=== PATIENT | male | born 1965 | race Caucasian/White ===

== ENCOUNTER → 2016-06-12 | Outpatient (CLI) | payer OTHER ==
[~2016-06-12] MED LIST: DIFLUCAN100 MG PO; DIFLUCAN150 MG PO; DITROPAN 5 MG TA5 MG PO; FLOMAX 0.4 MG0.4 MG PO; HABITROL 21 MG P1 EA TOP; HYDROCHLOROTHIA25 MG PO; NEURONTIN300 MG PO; NORVASC 5 MG TAB5 MG PO; NOVOLIN 70100 UNIT/1 SC; NOVOLOG 10100 UNITS1 SC; OXYBUTYNIN CHLOR5 MG PO; PRILOSEC OTC20 MG PO; PROTONIX40 MG PO; ROBAXIN 750 MG750 MG PO; TYLENOL 325MG325 MG PO
== END ==
LOC: KOH-I 14:30
DX: Z86.718 Personal history of other venous thrombosis and embolism (principal); Z88.0 Allergy status to penicillin; Z88.5 Allergy status to narcotic agent; Z88.8 Allergy status to other drugs, medicaments and biological substances
CPT/HCPCS: 93971

== ENCOUNTER 2016-08-05 18:27 | Emergency (ER) | payer MEDICARE, OTHER ==
[~2016-08-05 18:27] MED LIST changes: -HYDROCHLOROTHIA25 MG PO; -ROBAXIN 750 MG750 MG PO
[2016-08-05 21:30] LABS: HEMOGLOBIN 14.2 gm/dl (14.0-17.5); RED BLOOD COUNT 4.99 M/UL (4.20-5.50); WHITE BLOOD COUNT 14.5 K/UL (4.5-11.0)
[2016-08-05 21:46] LABS: BUN/CREATININE RATIO 22 (0-10)
== END 2016-08-06 00:32 | disposition home or self-care (01) ==
LOC: ER1 18:27
PROVIDERS: Family Medicine
DX: S09.90XA Unspecified injury of head, initial encounter (principal); S13.9XXA Sprain of joints and ligaments of unspecified parts of neck, initial encounter; S40.012A Contusion of left shoulder, initial encounter; I10 Essential (primary) hypertension; E11.9 Type 2 diabetes mellitus without complications; W10.9XXA Fall (on) (from) unspecified stairs and steps, initial encounter
CPT/HCPCS: 36415; 70450; 71010; 72125; 73030; 80053; 85025; 96374; 96375; 99284; G0480; J2270; J2405

== ENCOUNTER 2016-09-19 03:31 | Observation (INO) | payer MEDICARE, OTHER ==
[~2016-09-19] VITALS: Ht 180.3 cm; Wt 99.8 kg
[2016-09-19 05:16] LABS: HEMOGLOBIN 15.6 gm/dl (14.0-17.5); RED BLOOD COUNT 5.46 M/UL (4.20-5.50); WHITE BLOOD COUNT 22.8 K/UL (4.5-11.0)
[2016-09-19 05:45] LABS: BUN/CREATININE RATIO 23 (0-10)
[2016-09-19] MEDS ORDERED: HYDROCHLOROTHIA25 MG PO (10:55)
[2016-09-19] MEDS ORDERED: ROBAXIN 750 MG750 MG PO (10:56)
[2016-09-20 03:41] LABS: HEMOGLOBIN 15.1 gm/dl (14.0-17.5); RED BLOOD COUNT 5.3 M/UL (4.20-5.50)
[2016-09-20 04:30] LABS: BUN/CREATININE RATIO 25 (0-10)
== END 2016-09-20 14:03 | disposition home or self-care (01) ==
LOC: ER1 03:31 → ZEROF 07:35 → MED SURG 4 07:35
PROVIDERS: Emergency Medicine; ADMIT Family Medicine
DX: E10.649 Type 1 diabetes mellitus with hypoglycemia without coma (principal); R07.9 Chest pain, unspecified; D72.829 Elevated white blood cell count, unspecified; G89.29 Other chronic pain; I10 Essential (primary) hypertension; K21.9 Gastro-esophageal reflux disease without esophagitis; J44.9 Chronic obstructive pulmonary disease, unspecified; I25.10 Atherosclerotic heart disease of native coronary artery without angina pectoris; N40.0 Benign prostatic hyperplasia without lower urinary tract symptoms; F17.200 Nicotine dependence, unspecified, uncomplicated; Z88.5 Allergy status to narcotic agent; Z88.8 Allergy status to other drugs, medicaments and biological substances
CPT/HCPCS: 36415; 71010; 80053; 80061; 80307; 81001; 82550; 82553; 82962; 83605; 83874; 83880; 84484; 85025; 85027; 87086; 93005; 96372; 99285; G0378

== ENCOUNTER → 2021-05-12 | Outpatient (CLI) | payer MEDICARE, OTHER ==
[~2021-05-12] MED LIST changes: +ASPIRIN CHEWABL81 MG PO; +HYDROCHLOROTHIA25 MG PO; +IBUPROFEN600 MG PO; +KEFLEX CAP 500500 MG PO; +NORFLEX 100 MG100 MG PO; +REGLAN10 MG PO; +ROBAXIN 750 MG750 MG PO; +Voltaren Gel 1 % TOP
== END ==
LOC: KOH-I 14:39
DX: R51.9 Headache, unspecified (principal); F17.200 Nicotine dependence, unspecified, uncomplicated; E11.9 Type 2 diabetes mellitus without complications; I10 Essential (primary) hypertension; Z86.73 Personal history of transient ischemic attack (TIA), and cerebral infarction without residual deficits
CPT/HCPCS: 70551

== ENCOUNTER 2021-05-29 07:43 | Emergency (ER) | payer MEDICARE ==
[2021-05-29 10:49] LABS: HEMOGLOBIN 13.8 gm/dl (14.0-17.5); RED BLOOD COUNT 4.91 M/UL (4.20-5.50); WHITE BLOOD COUNT 9.8 K/UL (4.5-11.0)
[2021-05-29 11:28] LABS: BUN/CREATININE RATIO 18 (0-10)
== END 2021-05-29 11:45 | disposition home or self-care (01) ==
LOC: ER1 07:43
PROVIDERS: Physician Assistant
DX: U07.1 COVID-19 (principal); F17.200 Nicotine dependence, unspecified, uncomplicated; E78.5 Hyperlipidemia, unspecified; E11.9 Type 2 diabetes mellitus without complications; I10 Essential (primary) hypertension; Z88.0 Allergy status to penicillin
CPT/HCPCS: 80053; 81001; 85025; 99284

== ENCOUNTER → 2021-05-30 | Outpatient (CLI) | payer MEDICARE ==
[~2021-05-30] VITALS: Ht 180.3 cm; Wt 108.9 kg
== END ==
LOC: EROP 10:59
DX: U07.1 COVID-19 (principal); Z23 Encounter for immunization; F17.200 Nicotine dependence, unspecified, uncomplicated; E11.9 Type 2 diabetes mellitus without complications; I10 Essential (primary) hypertension
CPT/HCPCS: M0247; Q0247

== ENCOUNTER 2021-09-25 10:40 | Emergency (ER) | payer OTHER, MEDICARE ==
[2021-09-25 12:37] LABS: HEMOGLOBIN 12.8 gm/dl (14.0-17.5); RED BLOOD COUNT 4.67 M/UL (4.20-5.50); WHITE BLOOD COUNT 13.6 K/UL (4.5-11.0)
[2021-09-25] MEDS ORDERED: CYCLOBENZAPRINE5 MG PO (14:47)
== END 2021-09-25 15:37 | disposition home or self-care (01) ==
LOC: ER1 10:40
PROVIDERS: Physician Assistant
DX: M51.36 Other intervertebral disc degeneration, lumbar region (principal); R00.1 Bradycardia, unspecified; R42 Dizziness and giddiness; E11.9 Type 2 diabetes mellitus without complications; I12.9 Hypertensive chronic kidney disease with stage 1 through stage 4 chronic kidney disease, or unspecified chronic kidney disease; N18.9 Chronic kidney disease, unspecified; F17.200 Nicotine dependence, unspecified, uncomplicated; Z88.5 Allergy status to narcotic agent; Z88.4 Allergy status to anesthetic agent; Z88.8 Allergy status to other drugs, medicaments and biological substances
CPT/HCPCS: 70450; 72131; 80053; 81001; 82550; 82553; 83690; 84484; 85025; 93005; 96374; 96375; 99284; J1170; J2405

== ENCOUNTER 2021-10-24 20:54 | Inpatient (IN) | payer OTHER, MEDICARE ==
[~2021-10-24] VITALS: Ht 180.3 cm; Wt 108.4 kg
[~2021-10-24 20:54] MED LIST changes: +CYCLOBENZAPRINE5 MG PO; +NORVASC10 MG PO; +OMEPRAZOLE40 MG PO; -PRILOSEC OTC20 MG PO
[2021-10-24 21:52] LABS: HEMOGLOBIN 13.9 gm/dl (14.0-17.5); RED BLOOD COUNT 4.91 M/UL (4.20-5.50); WHITE BLOOD COUNT 20.6 K/UL (4.5-11.0)
[2021-10-24 22:11] LABS: BUN/CREATININE RATIO 22 (0-10)
[2021-10-25 01:36] LABS: BUN/CREATININE RATIO 25 (0-10)
[2021-10-25] MEDS ORDERED: ERYTHROMYCIN250 M1 PO (10:33)
[2021-10-25] MEDS ORDERED: CRESTOR20 MG PO (10:33)
[2021-10-25] MEDS ORDERED: DULCOLAX5 MG PO (10:34)
[2021-10-25] MEDS ORDERED: COZAAR50 MG PO (10:34)
[2021-10-25] MEDS ORDERED: NOVOLOG100 UNIT/1 INJ (10:35)
[2021-10-25 13:28] LABS: BUN/CREATININE RATIO 23 (0-10)
[2021-10-25 17:14] LABS: BUN/CREATININE RATIO 20 (0-10)
== END 2021-10-25 18:04 | disposition home or self-care (01) | DRG 638 ==
LOC: ER1 20:54 → CCU 10-25 02:43 → CDU 10-25 02:43 → CCU 10-25 03:42
PROVIDERS: Family Medicine; Internal Medicine; ADMIT Internal Medicine
DX: E10.10 Type 1 diabetes mellitus with ketoacidosis without coma (principal); N17.9 Acute kidney failure, unspecified; I25.10 Atherosclerotic heart disease of native coronary artery without angina pectoris; N40.0 Benign prostatic hyperplasia without lower urinary tract symptoms; Z20.822 Contact with and (suspected) exposure to COVID-19; F17.200 Nicotine dependence, unspecified, uncomplicated; I12.9 Hypertensive chronic kidney disease with stage 1 through stage 4 chronic kidney disease, or unspecified chronic kidney disease; N18.9 Chronic kidney disease, unspecified; K20.90 Esophagitis, unspecified without bleeding; Z86.73 Personal history of transient ischemic attack (TIA), and cerebral infarction without residual deficits; Z88.2 Allergy status to sulfonamides; Z82.49 Family history of ischemic heart disease and other diseases of the circulatory system; Z90.49 Acquired absence of other specified parts of digestive tract; Z98.890 Other specified postprocedural states; Z88.0 Allergy status to penicillin; Z88.5 Allergy status to narcotic agent; Z88.8 Allergy status to other drugs, medicaments and biological substances; Z79.82 Long term (current) use of aspirin
CPT/HCPCS: 36415; 71045; 80048; 80053; 81001; 82009; 82550; 82553; 82803; 82962; 83605; 83690; 83735; 84100; 84439; 84443; 84484; 85025; 85610; 93005; 96361; 96374; 96375; 96376; 99285; C9113; J2405; J3480; U0002

== ENCOUNTER → 2021-11-16 | Day surgery (SDC) | payer MEDICARE ==
[~2021-11-16] MED LIST changes: +CETIRIZINE HCL10 MG PO; +COLACE100 MG PO; +COZAAR50 MG PO; +CRESTOR20 MG PO; +DULCOLAX5 MG PO; +ERYTHROMYCIN250 M1 PO; +FLONASE ALLER15.8 ML; +NOVOLOG100 UNIT/1 INJ; +PERCOCET 5/325 T1 EA PO
[2021-11-16 06:39] LABS: RED BLOOD COUNT 4.84 M/UL (4.20-5.50); WHITE BLOOD COUNT 12.1 K/UL (4.5-11.0)
[2021-11-16 07:05] LABS: BUN/CREATININE RATIO 16 (0-10)
== END | disposition home or self-care (01) ==
LOC: OR 05:33
PROVIDERS: Surgery
DX: K40.90 Unilateral inguinal hernia, without obstruction or gangrene, not specified as recurrent (principal); J45.909 Unspecified asthma, uncomplicated; F32.A Depression, unspecified; K21.9 Gastro-esophageal reflux disease without esophagitis; E11.9 Type 2 diabetes mellitus without complications; Z88.5 Allergy status to narcotic agent; Z88.8 Allergy status to other drugs, medicaments and biological substances; Z88.0 Allergy status to penicillin; Z79.4 Long term (current) use of insulin; Z79.899 Other long term (current) drug therapy
CPT/HCPCS: 80048; 82962; 85027; C1781; C9089; J1100; J1170; J2001; J2405; J2704; J7030

== ENCOUNTER 2021-11-17 20:33 | Inpatient (IN) | payer MEDICARE ==
[~2021-11-17] VITALS: Ht 180.3 cm; Wt 105.0 kg
[~2021-11-17 20:33] MED LIST changes: -CETIRIZINE HCL10 MG PO; -FLONASE ALLER15.8 ML
[2021-11-17 21:21] LABS: HEMOGLOBIN 11.9 gm/dl (14.0-17.5); RED BLOOD COUNT 4.21 M/UL (4.20-5.50); WHITE BLOOD COUNT 25.2 K/UL (4.5-11.0)
[2021-11-18 07:00] LABS: HEMOGLOBIN 10.4 gm/dl (14.0-17.5); WHITE BLOOD COUNT 22.7 K/UL (4.5-11.0)
[2021-11-18 07:09] LABS: RED BLOOD COUNT 3.68 M/UL (4.20-5.50)
[2021-11-18] MEDS ORDERED: CETIRIZINE HCL10 MG PO (09:31)
[2021-11-18] MEDS ORDERED: FLONASE ALLER15.8 ML (09:32)
[2021-11-19 01:54] LABS: HEMOGLOBIN 9.9 gm/dl (14.0-17.5); RED BLOOD COUNT 3.51 M/UL (4.20-5.50)
[2021-11-19 01:58] LABS: WHITE BLOOD COUNT 16.6 K/UL (4.5-11.0)
[2021-11-19 07:28] LABS: BUN/CREATININE RATIO 19 (0-10)
[2021-11-19 11:01] LABS: BUN/CREATININE RATIO 18 (0-10)
[2021-11-19 18:38] LABS: BUN/CREATININE RATIO 16 (0-10)
[2021-11-20 04:13] LABS: HEMOGLOBIN 10.5 gm/dl (14.0-17.5); RED BLOOD COUNT 3.71 M/UL (4.20-5.50)
[2021-11-20 04:15] LABS: WHITE BLOOD COUNT 9.3 K/UL (4.5-11.0)
[2021-11-20 04:38] LABS: BUN/CREATININE RATIO 16 (0-10)
[2021-11-20 15:48] LABS: BUN/CREATININE RATIO 14 (0-10)
[2021-11-21 06:20] LABS: HEMOGLOBIN 10.6 gm/dl (14.0-17.5); RED BLOOD COUNT 3.77 M/UL (4.20-5.50); WHITE BLOOD COUNT 6.8 K/UL (4.5-11.0)
[2021-11-21 06:49] LABS: BUN/CREATININE RATIO 13 (0-10)
[2021-11-21] MEDS ORDERED: LANTUS INS100 UTS/M1 SC (09:23)
[2021-11-21] MEDS ORDERED: HUMALOG 10100 UNITS/ SC ×2 (09:23)
== END 2021-11-21 12:14 | disposition home or self-care (01) | DRG 919 ==
LOC: ER1 20:33 → MED SURG 4 22:02 → CDU 22:02 → CCU 22:02 → MED SURG 4 11-20 14:36
PROVIDERS: Emergency Medicine; Internal Medicine Infectious Disease; ADMIT Internal Medicine
PROC: 02HV33Z Insertion of Infusion Device into Superior Vena Cava, Percutaneous Approach (ICD-10-PCS; principal; 2021-11-18)
PROC: B548ZZA Ultrasonography of Superior Vena Cava, Guidance (ICD-10-PCS; 2021-11-18)
DX: T85.694A Other mechanical complication of insulin pump, initial encounter (principal); E10.10 Type 1 diabetes mellitus with ketoacidosis without coma; N17.9 Acute kidney failure, unspecified; F11.20 Opioid dependence, uncomplicated; R65.10 Systemic inflammatory response syndrome (SIRS) of non-infectious origin without acute organ dysfunction; E10.43 Type 1 diabetes mellitus with diabetic autonomic (poly)neuropathy; K31.84 Gastroparesis; I25.10 Atherosclerotic heart disease of native coronary artery without angina pectoris; G89.29 Other chronic pain; I10 Essential (primary) hypertension; N40.0 Benign prostatic hyperplasia without lower urinary tract symptoms; E87.5 Hyperkalemia; E86.0 Dehydration; K20.90 Esophagitis, unspecified without bleeding; Z86.73 Personal history of transient ischemic attack (TIA), and cerebral infarction without residual deficits; Z90.49 Acquired absence of other specified parts of digestive tract; Z98.890 Other specified postprocedural states; Z79.4 Long term (current) use of insulin
CPT/HCPCS: 0240U; 36415; 36600; 71045; 80048; 80053; 81001; 82009; 82803; 82947; 82962; 83605; 83735; 84100; 84132; 85025; 87040; 87086; 93005; 94664; 94760; 96374; 99285; J1170; J1650; J2405; J2543; J3370; J7070